=== PATIENT | female | born 1980 | race Caucasian/White ===

== ENCOUNTER 2019-06-29 09:41 | Day surgery (SDC) | payer BC, OTHER ==
[~2019-06-29 09:41] MED LIST: AMOX500 PO; CETI10 PO; CIPR500 PO; CYCL10 PO; DIPH50 PO; HYDACE5 PO; IBUP600 PO; PHENA200; PHENA200 PO; PRED10 PO; RXPHEN200 PO; RXSULTRIDS; SULTRIDS PO
[2019-06-29 11:30] LABS: Performing Lab VERCYTE; Test Name FNA
[2019-07-06 15:52] LABS: Result SEE PATHOTH RESULTS
== END 2019-06-29 22:49 | disposition home or self-care (01) ==
LOC: US 09:41
PROVIDERS: Nurse Practitioner Family
DX: E04.1 Nontoxic single thyroid nodule (principal)
CPT/HCPCS: 10005

== ENCOUNTER 2021-01-26 16:08 | Emergency (ER) | payer BC ==
[~2021-01-26] VITALS: Ht 170.2 cm; Wt 64.4 kg
[2021-01-26] MEDS ORDERED: Amoxicillin500 MG PO (16:30)
== END 2021-01-26 17:05 | disposition home or self-care (01) ==
LOC: ER 16:08
DX: B08.5 Enteroviral vesicular pharyngitis (principal)
CPT/HCPCS: 99282

== ENCOUNTER → 2022-03-16 | Outpatient (CLI) | payer OTHER ==
[~2022-03-16] MED LIST changes: +Amoxicillin500 MG PO
== END | disposition home or self-care (01) ==
LOC: LAB SHORT 11:21 → LAB 11:21
DX: J02.9 Acute pharyngitis, unspecified (principal)
CPT/HCPCS: 87081

== ENCOUNTER → 2022-12-03 | Outpatient (CLI) | payer OTHER ==
[2022-12-05 13:13] LABS: Candida species (DNA Probe) Negative (NEGATIVE); G. vaginalis (DNA Probe) Negative (NEGATIVE); T. vaginalis (DNA Probe) Negative (NEGATIVE)
[2022-12-06 01:10] LABS: CHLAMYDIA TRACHOMATIS, NAA Negative (Negative)
== END ==
LOC: LAB SHORT 16:27
PROVIDERS: Nurse Practitioner Family
DX: N89.8 Other specified noninflammatory disorders of vagina (principal)
CPT/HCPCS: 87086; 87480; 87491; 87510; 87591; 87660